=== PATIENT | male | born 1955 | race Caucasian/White ===

== ENCOUNTER 2018-07-19 10:45 | Emergency (ER) | payer OTHER ==
[~2018-07-19] VITALS: Ht 175.3 cm; Wt 90.0 kg
[2018-07-19 10:48] VITALS: BP 175/83
[2018-07-19] MEDS ORDERED: SERT20OR PO (10:51)
[2018-07-19] MEDS ORDERED: QUET25TA PO (10:51)
[2018-07-19 13:12] LABS: BASOPHILS % 0.5 % (0.0-2.0); HEMOGLOBIN. 16.5 g/dL (14.0-18.0); LYMPHOCYTES % 14.4 % (20.0-50.0); MEAN CORPUSCULAR HEMOGLOBIN 31.1 pg (28.0-32.0); MEAN CORPUSCULAR VOLUME 92.4 fL (80.0-94.0); MEAN PLATELET VOLUME 7.7 fl (7.4-10.4); MONOCYTES % 8.8 % (2.0-8.0); NEUTROPHILS % 76.3 % (40.0-76.0); PLATELET 227 x1000/uL (130-400); RED CELL DISTRIBUTION WIDTH 14.2 % (11.6-14.6)
[2018-07-19 13:20] LABS: CHLORIDE 105 mEq/L (98-107)
[2018-07-19 13:24] LABS: ETHANOL BLOOD < 10 mg/dL
== END 2018-07-19 13:25 | disposition left against medical advice (07) ==
LOC: ER 10:45
DX: R45.851 Suicidal ideations (principal); F15.10 Other stimulant abuse, uncomplicated; F10.10 Alcohol abuse, uncomplicated; Y90.0 Blood alcohol level of less than 20 mg/100 ml
CPT/HCPCS: 36415; 80048; 80307; 80329; 99284